=== PATIENT | male | born 1965 | race Caucasian/White ===

== ENCOUNTER 2021-06-28 16:54 | Outpatient (CLI) | payer OTHER, SELFPAY ==
[2021-06-28 17:02] VITALS: BP 145/89; PULSE 74; RESP 16; TEMP 36.6; O2SAT 97; BMI 33.0
[2021-06-28] MEDS: 0.9% Saline Lock 10 ML Syringe IV (17:08)
[2021-06-28 17:47] VITALS: BP 137/86; PULSE 70; RESP 16; TEMP 36.9; O2SAT 97
[2021-06-28 18:37] VITALS: BP 150/95; PULSE 70; RESP 16; TEMP 37.1; O2SAT 98
== END 2021-06-28 23:59 | disposition home or self-care (01) ==
LOC: MS3OUT 16:57 → MS3 16:58
PROVIDERS: Referring Provider Nurse Practitioner Adult Health; Visit Provider Nurse Practitioner Adult Health
DX: U07.1 COVID-19 (principal)
CPT/HCPCS: J7050; M0247; A4216; Q0247